=== PATIENT | female | born 1990 | race Caucasian/White ===

== ENCOUNTER 2019-12-30 14:37 | Emergency (ER) | payer OTHER ==
[~2019-12-30] VITALS: Ht 152.4 cm; Wt 72.6 kg
[2019-12-30 14:41] VITALS: BP 110/78
--- NOTE | 2019-12-30 14:47 | NUR ---
AMBULATED TO BED 4
--- NOTE | 2019-12-30 14:49 | NUR ---
PT AMB TO RESTROOM TO PROVIDE URINE SAMPLE
--- NOTE | 2019-12-30 14:59 | NUR ---
/F C/O DIZZINESS AND ROOM SPINNING X 6 DAYS. DIZZINESS AND ROOM SPINNING SENSATION INITIATED BY CHANGING POSITIONS FROM SUPINE TO STANDING. DENIES FALLS OR LOC. THE DIZZINESS GRADUALLY SUBSIDES AFTER STANDING FOR A WHILE. WAS SEEN AT [facility]RG[facility] 2 DAYS AGO, HAD CERUMEN REMOVED FROM RIGHT EAR (DENSANDRA EAR INFXN) AND PRESCRIBED MECLIZINE FOR THE DIZZINESS. PT TOOK THE MECLIZINE FOR THE FIRST TIME TODAY AND STATES THE DIZZINESS IS WORSE AFTER TAKING PRESCRIBED MED. MED HX: SANDRA Addendum: 12/30/19 at 1502 by GENEVIEVE SANDRA HX OF [facility]
[2019-12-30] MEDS ORDERED: DIAZEPAM PFS 10 MG/2 ML SYR IVP ONE (15:35)
[2019-12-30] MEDS ORDERED: NACL 0.9% 1,000 ML IV ONE (15:35)
--- NOTE | 2019-12-30 15:45 | NUR ---
PT STATES SHE DOES NOT WANT BLOOD DRAW NOW BECAUSE SHE IS GETTING COMPREHENSIVE BLOOD DRAW WITH PCP IN THE NEXT FEW DAYS. ALSO REFUSED DIAZEPAM IV--NEEDS TO DRIVE TO [employer] [facility] SOON.
--- NOTE | 2019-12-30 15:45 | NUR ---
NOTIFIED DR. MADRID THAT PT REFUSED BLOOD DRAW BECAUSE SHE IS GETTING BLOOD DRAW WITH PCP IN A FEW DAYS. ALSO PT REFUSED VALIUM DUE TO NEEDING TO DRIVE TO [facility] BROTHER IN AN HOUR OR SO. PER DR. MADRID, JUST ADMINISTER THE 1L NS.
--- NOTE | 2019-12-30 16:38 | NUR ---
Patient discharged with v/s stable. Written and verbal after care instructions given and explained. Patient alert, oriented and verbalized understanding of instructions. Ambulatory with steady gait. All questions addressed prior to discharge. ID band removed. Patient advised to follow up with PMD. Rx of VALIUM given. Patient educated on indication of medication including possible reaction and side effects. Opportunity to ask questions provided and answered.
[2019-12-30 16:40] VITALS: BP 125/75
== END 2019-12-30 16:38 | disposition home or self-care (01) ==
LOC: MED 14:37
DX: R42 Dizziness and giddiness (principal)
CPT/HCPCS: 81002; 81025; 96360; 99283; J7030; J3360